=== PATIENT | female | born 1990 | race Caucasian/White ===

== ENCOUNTER 2016-08-14 21:24 | Emergency (ER) | payer BC ==
[~2016-08-14] VITALS: Ht 160 cm; Wt 112.5 kg
[~2016-08-14 21:24] MED LIST: BACTRIM,SEPT1 TABLET PO; LOESTRIN1 EACH PO; METHYLPREDNISOLO4 M1 PO; PHENAZOPYRIDIN100 MG PO; SERTRALINE HCL100 MG PO; TRAZODONE HCL50 MG PO
[2016-08-14] MEDS ORDERED: NAPROXEN500 MG PO (21:48)
[2016-08-14] MEDS ORDERED: SKELAXIN800 MG PO (21:48)
[2016-08-14] MEDS ORDERED: NORCO 5/3251 TABLET PO (21:48)
[2016-08-14 23:41] VITALS: BP 120/86
== END 2016-08-14 23:45 | disposition home or self-care (01) ==
LOC: EME 21:24
DX: S39.012A Strain of muscle, fascia and tendon of lower back, initial encounter (principal); X50.9XXA Other and unspecified overexertion or strenuous movements or postures, initial encounter; Y92.812 Truck as the place of occurrence of the external cause; Z88.1 Allergy status to other antibiotic agents
CPT/HCPCS: 99281; 99284; J1885

== ENCOUNTER 2017-08-28 13:36 | Emergency (ER) | payer BC ==
[~2017-08-28] VITALS: Ht 160 cm; Wt 100.5 kg
[~2017-08-28 13:36] MED LIST changes: +NAPROXEN500 MG PO; +NORCO 5/3251 TABLET PO; +SKELAXIN800 MG PO
[2017-08-28 14:43] LABS: HEMATOCRIT 42.3 % (36.0-46.0); HEMOGLOBIN 14.2 G/DL (11.9-15.5); MCH 29.5 PG (29.0-34.0); MCHC 33.6 G/DL (30.0-36.0); MCV 87.8 FL (83-99); PLATELET COUNT 199 K/uL (156-360); RBC DIS.WIDTH-CV 12.7 % (11.8-14.6); RBC DIS.WIDTH-SD 40.7 % (39-53); RED BLOOD COUNT 4.82 M/uL (3.80-5.20); WHITE BLOOD COUNT 12.4 K/uL (4.1-10.2)
[2017-08-28 14:52] LABS: CHLORIDE 105 mEq/L (99-109); SODIUM 135 mEq/L (136-147)
[2017-08-28 14:53] LABS: GLUCOSE 92 mg/dL (70-99)
[2017-08-28 14:57] LABS: CREATININE 0.6 mg/dL (0.6-1.3); GFR ESTIMATE (CALCULATED) > 59 mL/min/
[2017-08-28 14:58] LABS: UREA NITROGEN (BUN) 7 mg/dL (9-23)
[2017-08-28 16:29] LABS: APPEARANCE CLOUDY ((CLEAR)); BILIRUBIN NEGATIVE; BLOOD NEGATIVE; COLOR YELLOW ((YELLOW)); GLUCOSE (STRIP) NEGATIVE; KETONES NEGATIVE; LEUKOCYTES MODERATE; NITRITE NEGATIVE; PROTEIN (STRIP) NEGATIVE; SPECIFIC GRAVITY 1.017 (1.000-1.030); UROBILINOGEN 0.2 MG/DL (0.2-1.0)
[2017-08-28 16:51] LABS: EPITHELIAL CELLS 3+ /HPF; RED BLOOD CELLS NONE SEEN /HPF (0-5)
[2017-08-28 16:52] LABS: BACTERIA 2+ /HPF; MUCUS NONE SEEN /LPF; UCUL ADDED? YES
[2017-08-28] MEDS ORDERED: KEFLEX500 MG PO (17:23)
[2017-08-28 17:42] VITALS: BP 110/78
== END 2017-08-28 17:43 | disposition home or self-care (01) ==
LOC: EME 13:36
DX: O23.41 Unspecified infection of urinary tract in pregnancy, first trimester (principal); O21.9 Vomiting of pregnancy, unspecified; Z3A.11 11 weeks gestation of pregnancy; Z88.1 Allergy status to other antibiotic agents; Z88.8 Allergy status to other drugs, medicaments and biological substances
CPT/HCPCS: 80048; 81003; 84702; 85027; 87086; 99281; 99284; J2765; J7030